=== PATIENT | male | born 1955 | race Caucasian/White ===

== ENCOUNTER 2025-02-09 00:01 | Emergency (ER) | payer MEDICARE ==
[~2025-02-09] VITALS: Ht 185.4 cm; Wt 93.0 kg
[2025-02-09 00:10] VITALS: BP 193/85
[2025-02-09] MEDS ORDERED: HYDROcodone 5-APAP 325 TAB PO ONE (00:25)
== END 2025-02-09 01:25 | disposition home or self-care (01) ==
LOC: ER 00:01
DX: S50.311A Abrasion of right elbow, initial encounter (principal); M25.531 Pain in right wrist; E11.9 Type 2 diabetes mellitus without complications; X50.9XXA Other and unspecified overexertion or strenuous movements or postures, initial encounter
CPT/HCPCS: 29125; 73130; 99283-25; A9270